=== PATIENT | male | born 1980 | race Caucasian/White ===

== ENCOUNTER → 2019-03-29 | Day surgery (SDC) | payer BC ==
[~2019-03-29] MED LIST: Bupivacaine/Epinephrine 0.25% 30 ML VIAL ONE; CEFAZOLIN 1 GM VIAL ONE; Cefepime 2 GM VIAL ONE; Dexamethasone 20 MG/5 ML VIAL ONE; Fentanyl 100 MCG/2 ML VIAL ONE; HYDROmorphone 0.5 MG/0.5 ML SYRINGE ONE; Iopamidol 370 76% 100 ML VIAL ONE; Ketorolac Tromethamine 30 MG/ML VIAL ONE; Lidocaine 1% PF 5 ML VIAL ONE; Lidocaine Viscous Sol 2% 15 ml UD Cup ONE; Mag-Al Plus 1200 MG/1200 MG/120 MG/30 ML UDCUP ONE; Midazolam HCl 2 mg/2 ml Vial ONE; Morphine 4 MG/ML VIAL ONE; Ondansetron PF 4 MG/2 ML Vial ONE; PROPOFOL 200 MG/20 ML VIAL ONE; Rocuronium Bromide 10 MG/ML (10ML VIAL) ONE; Sodium Chloride 0.9% 100 ML ONE; Sterile Water 10 ML VIAL ONE; metroNIDAZOLE 500 MG/100 ML BAG ONE
[2019-03-29 07:24] LABS: #Basophils 0.1 thou/uL (0.0-0.2); #Eosinphils 0.2 thou/uL (0.0-0.7); #Monocytes 0.5 thou/uL (0.11-0.59); %Basophils 1.1 % (0.0-1.0); %Eosinophils 2.3 % (0.0-10.0); %Lymphocytes 23.1 % (21.0-51.0); %Monocytes 5.2 % (0.0-10.0); %Neutrophils 68.2 % (42.0-75.0); Hemoglobin 16.3 g/dL (14.0-18.0); Mean Corpuscular HGB CONC 34.7 g/dL (32.0-36.0); Mean Corpuscular Hemoglobin 30.2 pg (27.0-31.0); Mean Corpuscular Volume 87.1 fL (78.0-98.0); Mean Platelet Volume 7.8 fL (7.4-10.4); Platelet Count 277 thou/uL (130-400); RBC Distribution Width 12.2 % (11.5-14.5); Red Blood Cell (RBC) Count 5.38 mill/uL (4.70-6.10); White Blood Cell (WBC) Count 8.8 thou/uL (4.8-10.8)
[2019-03-29 07:38] LABS: ALT (SGPT) 35 U/L (8-55); AST (SGOT) 18 U/L (5-34); Albumin 4.4 g/dL (3.5-5.0); Alkaline Phosphatase 69 U/L (40-150); Anion Gap 12 mmol/L (10-20); BUN (Urea Nitrogen) 10 mg/dL (8.9-20.6); Bilirubin, Total 0.6 mg/dL (0.2-1.2); Calc. Creatinine Clearance 0 mL/min (70-130); Calcium 9.9 mg/dL (7.8-10.44); Carbon Dioxide 30 mmol/L (22-29); Chloride 104 mmol/L (98-107); Estimated GFR-MDRD 75; Globulin 2.7 g/dL (2.4-3.5); Glucose 130 mg/dL (70-105); Lipase 23 U/L (8-78); Potassium 3.8 mmol/L (3.5-5.1); Protein, Total 7.1 g/dL (6.0-8.3); Sodium 142 mmol/L (136-145)
--- NOTE | 2019-03-29 08:01 | ULT ---
EXAM: US Gallbladder RUQ PROVIDED CLINICAL HISTORY: Right upper quadrant pain COMPARISON: None FINDINGS: The pancreas is obscured. IVC appears normal. The liver appears echogenic suggesting fatty infiltrati on small area of sparing at the gallbladder fossa. There is no evidence for hepatic mass or biliary ductal dilatation. The common duct is nondilated. Gallstones are demonstrated without evidence for wa ll thickening or pericholecystic fluid. Sonographic Shah's sign is documented as negative. Common duct is nondilated. Right kidney demonstrates no hydronephrosis or mass. IMPRESSION: Cholelithiasis without acute findings related to the gallbladder appearance sonographically.
[2019-03-29 08:56] LABS: Bilirubin Negative (Negative); Blood, Urine Negative (Negative); Clarity Hazy (Clear); Glucose, Urine (Dipstick) Negative (Negative); Leukocyte Negative (Negative); Nitrite Negative (Negative); Protein, Urine (Dipstick) Negative (Neg-Trace); Urobilinogen 0.2 mg/dL (Less than 2)
--- NOTE | 2019-03-29 09:16 | CT ---
EXAM: CT abdomen and pelvis with IV contrast PROVIDED CLINICAL HISTORY: Abdominal pain COMPARISON: None FINDINGS: The visualized lung bases are free of significant opacity. The solid abdominal organs demonstrate an unremarkable CT appearance. Mild nonspecific gallbladder di stention. There is no bowel dilatation, inflammatory fat stranding, free fluid or free air apparent. There is n o evidence for appendicitis. No regional lymph node enlargement apparent. The regional major vascular structures appear unremarkab le. The osseous structures demonstrate no concerning lytic or blastic lesions. IMPRESSION: No evidence for an acute process.
--- NOTE | 2019-03-29 11:53 | HP ---
HISTORY OF PRESENT ILLNESS: Mr. Corbin is a 39-year-old man who presented to [facility] with insidious onset epigastric abdominal pain, which started at 0100 hours. The pain is described as sharp without any radiation. He reports similar pain pattern in the past, usually associated with meals. Previously, the pain will last 2 to 3 hours. This pain had persisted since 0100 hours. As a result, the patient presented to emergency department. Presently at this time, pain was associated with one bout of nausea and nonbilious emesis. Last meal was dinner last night, which consisting of "a bunch of fried sea foods." The patient denies any fevers or chills. He denies any abdominal bloating or diarrhea. PAST MEDICAL HISTORY: Denies any previous medical problems. PAST SURGICAL HISTORY: Pertinent for left inguinal herniorrhaphy 6 to 7 years ago. SOCIAL HISTORY: He is , lives at home with his family. He is employed as a content management consultant. He dips tobacco and has done so since the ninth grade, which is approximately 20 years ago. He denies any cigarette smoking. He admits to occasional intake of ethanol in moderate amounts and denies any illicit drug abuse. FAMILY HISTORY: Pertinent for essential hypertension in both parents. His maternal grandfather had tobacco-related throat cancer. He had both maternal grandparents with diabetes mellitus. He denies any family history of heart disease. ALLERGIES: TO PENICILLIN. CURRENT MEDICATIONS: None except for occasional use of Zantac. REVIEW OF SYSTEMS: Ten-point review of system is essentially unremarkable except as stated in past medical history and chief complaint. PHYSICAL EXAMINATION: GENERAL: This reveals a 39-year-old normally developed man, who is otherwise coherent, interactive, and appears stated age. The patient is alert and oriented x3, appears to be in no acute distress at the time of my evaluation. VITAL SIGNS: Today include blood pressure 119/81, pulse 56, respiratory rate is 18, temperature is 98 degrees Fahrenheit, oxygen saturation is 98% on room air. HEENT: Reveals normocephalic and atraumatic. The pupils are equal, round, reactive to light and accommodation. Extraocular muscles are intact bilaterally. He has no scleral icterus present. Oral mucosa is pink and moist. No lesions are noted. NECK: Supple. No palpable lymphadenopathy or thyromegaly. HEART: Reveals regular rate and rhythm. No murmurs or gallops auscultated. LUNGS: Clear to auscultation bilaterally. His breathing is regular and nonlabored. ABDOMEN: Soft and nondistended. He has moderate epigastric to right upper quadrant tenderness to palpation. He has negative Shah's sign. Liver and spleen, nonpalpable below costal margins. EXTREMITIES: Reveal 2+ radial and pedal pulses bilaterally. No ankle edema is present. NEUROLOGIC: Reveals no focal deficits. LABORATORY FINDINGS: Include CBC with 8,800 white blood cells, hemoglobin and hematocrit 16.3 and 46.8 respectively. The platelet count is 277,000. Metabolic profile; sodium 142, potassium 3.8, chloride is 104, bicarbonate is 30, BUN 10, creatinine is 1.10, glucose 130, total bilirubin 0.6, AST and ALT are 18 and 35 respectively. Alkaline phosphatase is 69. Serum lipase is 23. I have personally reviewed the abdominal ultrasound, which is remarkable for distended gallbladder with multiple intraluminal gallstones. Although the gallbladder wall is not thickened, there is pericholecystic fluid present. Common bile duct is normal in diameter for this patient's age at 4.4 mm. IMPRESSION: Acute cholecystitis with cholelithiasis. RECOMMENDATION: 1. Laparoscopic cholecystectomy. 2. Above findings and recommendations have been discussed with the patient and his at bedside. 3. I have advised the patient of the risks and benefits of the proposed surgery to include, but not limited to bleeding, infection, injury to bile duct or surrounding structures. 4. The patient indicates understanding information given. I have answered his questions. 5. He has granted consent for this admission and surgical intervention. Job ID: [id number]
--- NOTE | 2019-03-29 17:19 | OP ---
DATE OF PROCEDURE: 03/29/2019 POSTOPERATIVE DIAGNOSES: Acute cholecystitis and cholelithiasis. POSTOPERATIVE DIAGNOSES: Acute cholecystitis and cholelithiasis. PROCEDURE PERFORMED: Laparoscopic cholecystectomy. ANESTHESIA: General endotracheal. ESTIMATED BLOOD LOSS: 20 mL. FLUIDS GIVEN: 1000 mL crystalloids. COUNTS: Sponge and instrument counts were verified as correct x2. COMPLICATIONS: None apparent at the time of operation. INDICATIONS FOR OPERATION: This is a 39-year-old man, presented with recurrent postprandial epigastric to right upper quadrant abdominal pain, which had failed to resolve at this time. Clinical radiographic examination was consistent with acute cholecystitis and cholelithiasis, for which the patient was brought to the operating room for cholecystectomy. Findings are consistent with a markedly distended gallbladder in the usual anatomic location, partially encased by omental adhesions. DESCRIPTION OF PROCEDURE: Informed consent was obtained from the patient. He was brought to the operating room and placed in supine position. Following general anesthesia, abdomen was sterilely prepped and draped in usual fashion. Skin below the umbilicus was infiltrated with 0.25% Marcaine with epinephrine. A small curvilinear infraumbilical incision was made using 11 scalpel. Umbilical stalk grasped with Moreno and elevated. Veress needle was inserted through the incision, placed in the peritoneal cavity, through which the abdomen was insufflated with 3 L of CO2 gas. Intraabdominal pressure noted at 2 mmHg. Following abdominal insufflation, Veress needle was removed. A 5 mm trocar introduced using a Visiport under laparoscopy. Laparoscopy confirmed proper placement of the port, no injuries to underlying structures. Additional laparoscopy reveals the right upper quadrant partially obscured by omental adhesions. Under direct laparoscopy, a 12 mm epigastric and two 5 mm right lateral subcostal ports were placed after the overlying skin was infiltrated with 0.25% Marcaine with epinephrine and appropriate incision was made. The patient was placed in a reverse Trendelenburg position, rotated to his left. I introduced a Prestige grasper through the right lateral subcostal port, attempted to grasp the fundus of the gallbladder, and it was quite tense. We decided to decompress the gallbladder in order to facilitate surgery. The fundus of the gallbladder was accessed using the Endo suction catheter with cautery evacuating excess bile. The Prestige grasper was then applied to the fundus, which was elevated cephalad. Omental adhesions were carefully dissected from the gallbladder with good hemostasis. A second Prestige grasper was introduced through the right medial subcostal port grasping the Isadora pouch, which was retracted laterally. The cystic duct was dissected free from surrounding structures at the triangle of Calot. The duct was divided between clips applying 2 clips proximally and one clip at the junction of the cystic duct and gallbladder. Cystic artery dissected free from surrounding structures and divided between clips in a similar fashion. The gallbladder itself was removed from the liver bed using cautery. It was then delivered out of the abdominal cavity using an EndoCatch. Operative site was inspected for good hemostasis. Finding no other pathology, laparoscopy was terminated. Fascia of the epigastric port site was closed using 0 Vicryl suture and Endo closure device on the laparoscopy. The abdomen was desufflated. All ports and instruments were removed and accounted for. Skin incisions were closed using 4-0 Monocryl suture in subcuticular fashion. Dermabond was applied over incisional closure. The patient tolerated the operation without any apparent complication and was returned to recovery room in a satisfactory condition. Job ID: [id number]
== END ==
LOC: SCSER 06:46 → SDC 10:19
PROVIDERS: ATTEND Surgery
PROC: 0FT44ZZ Resection of Gallbladder, Percutaneous Endoscopic Approach (ICD-10-PCS; principal; 2019-03-29)
DX: K80.12 Calculus of gallbladder with acute and chronic cholecystitis without obstruction (principal); F17.220 Nicotine dependence, chewing tobacco, uncomplicated; K66.0 Peritoneal adhesions (postprocedural) (postinfection); Z88.0 Allergy status to penicillin
CPT/HCPCS: 36415; 74177; 76705; 80053; 81003; 83690; 85025; 88304; J0500; J0690; J0692; J1100; J1170; J1885; J2001; J2250; J2270; J2405; J2704; J3010; J3490